=== PATIENT | male | born 1975 | race Caucasian/White ===

== ENCOUNTER 2024-07-30 13:49 | Outpatient (CLI) | payer BC | END 2024-07-30 13:50 | disposition home or self-care (01) | LOC: CSHLAB 13:49 | PROVIDERS: ATTEND Otolaryngology Plastic Surgery within the Head & Neck | DX: Z01.818 Encounter for other preprocedural examination (principal); J34.2 Deviated nasal septum; J34.3 Hypertrophy of nasal turbinates; J01.01 Acute recurrent maxillary sinusitis; J01.21 Acute recurrent ethmoidal sinusitis | CPT/HCPCS: 93005; 93010 ==

== ENCOUNTER 2024-08-01 06:32 | Day surgery (SDC) | payer BC ==
[2024-07-30 14:21] VITALS: BMI 29.8
[2024-08-01] MEDS ORDERED: AFRIN NASAL MIST 15 ML BOT ONE (07:42)
[2024-08-01] MEDS ORDERED: Lidocaine 1% (PF) 30 ML VIAL ONE (08:05)
[2024-08-01] MEDS ORDERED: Mupirocin 2% Ointment 22 GM Tube ONE (08:05)
[2024-08-01] MEDS ORDERED: EPINEPHrine 1 MG/ML VIAL ONE (08:05)
[2024-08-01] MEDS ORDERED: fentaNYL 50 mcg/mL 1 mL Vial ONE ×2 (08:08→08:10)
[2024-08-01] MEDS ORDERED: PROPOFOL 20 ML ONE ×2 (08:08→08:09)
[2024-08-01] MEDS ORDERED: Midazolam HCl 2 mg/2 ml Vial ONE (08:09)
[2024-08-01] MEDS ORDERED: Lidocaine 1% PF 5 ML VIAL ONE (08:12)
[2024-08-01] MEDS ORDERED: Ondansetron PF 4 MG/2 ML Vial ONE (08:12)
[2024-08-01] MEDS ORDERED: Dexamethasone 20 MG/5 ML VIAL ONE (08:12)
[2024-08-01] MEDS ORDERED: Lidocaine 4% PF 5 ML AMP ONE (08:12)
[2024-08-01] MEDS ORDERED: Oxymetazoline HCl 0.05% ( 15 ML ) ONE (08:54)
[2024-08-01] MEDS ORDERED: PHENYLEPHRINE-NS 100 MCG/ML 10 ML SYRINGE ONE (09:01)
[2024-08-01] MEDS ORDERED: HYDROcodone/Acetaminophen 5/325 mg Tablet ONE (10:28)
== END 2024-08-01 11:05 | disposition home or self-care (01) ==
LOC: CSHSDC 06:32
PROVIDERS: ATTEND Otolaryngology Plastic Surgery within the Head & Neck
PROC: 09BM8ZZ Excision of Nasal Septum, Via Natural or Artificial Opening Endoscopic (ICD-10-PCS; principal; 2024-08-01)
PROC: 09TR8ZZ Resection of Left Maxillary Sinus, Via Natural or Artificial Opening Endoscopic (ICD-10-PCS; principal; 2024-08-01)
PROC: 09TV8ZZ Resection of Left Ethmoid Sinus, Via Natural or Artificial Opening Endoscopic (ICD-10-PCS; principal; 2024-08-01)
PROC: 09TU8ZZ Resection of Right Ethmoid Sinus, Via Natural or Artificial Opening Endoscopic (ICD-10-PCS; principal; 2024-08-01)
PROC: 09TL8ZZ Resection of Nasal Turbinate, Via Natural or Artificial Opening Endoscopic (ICD-10-PCS; principal; 2024-08-01)
PROC: 09TQ8ZZ Resection of Right Maxillary Sinus, Via Natural or Artificial Opening Endoscopic (ICD-10-PCS; principal; 2024-08-01)
DX: J34.2 Deviated nasal septum (principal); J34.3 Hypertrophy of nasal turbinates; J01.81 Other acute recurrent sinusitis; J34.89 Other specified disorders of nose and nasal sinuses; I10 Essential (primary) hypertension; J30.1 Allergic rhinitis due to pollen; J30.81 Allergic rhinitis due to animal (cat) (dog) hair and dander; J30.89 Other allergic rhinitis; Z79.899 Other long term (current) drug therapy
CPT/HCPCS: C1726; J0171; J1100; J2250; J2405; J2704; J3010